=== PATIENT | female | born 1925 | race Caucasian/White ===

== ENCOUNTER 2017-03-11 14:09 | Emergency (ER) | payer MEDICARE, BC ==
[~2017-03-11] VITALS: Ht 157.5 cm; Wt 59.1 kg
[2017-03-11 14:10] VITALS: TEMP 98.1
[2017-03-11] MEDS ORDERED: ASPIRIN 81M81 MG/TA2 PO (14:48)
[2017-03-11] MEDS ORDERED: GLUCOPHAGE500 MG/TAB PO (14:49)
[2017-03-11] MEDS ORDERED: ZOCOR 10MG10 MG PO (14:49)
[2017-03-11] MEDS ORDERED: NORVASC 10MG10 MG PO (14:50)
[2017-03-11] MEDS ORDERED: FISH OIL 1000MG1 CAP PO (14:50)
[2017-03-11] MEDS ORDERED: SYNTHROID 0.0.025 MG PO (14:50)
[2017-03-11] MEDS ORDERED: EFFEXOR 3737.5 MG/TA PO (14:50)
[2017-03-11] MEDS ORDERED: VITAMIN C500 MG PO (14:51)
[2017-03-11] MEDS ORDERED: CALCIUM CARBON650 M2 PO (14:51)
[2017-03-11] MEDS ORDERED: VITAMIN D31000 I1 PO (14:51)
[2017-03-11] MEDS ORDERED: VITAMIN E 400 U4001 PO (14:51)
[2017-03-11] MEDS ORDERED: MULTI VITAMINS1 TAB PO (14:51)
[2017-03-11] MEDS ORDERED: CITRACAL + D CA1 TAB PO (14:52)
[2017-03-11] MEDS ORDERED: PROCARDIA XL 3030 MG PO (14:52)
[2017-03-11 15:13] LABS: BASO % 0.4 % (0.0-2.0); EOS # 0.2 (0.0-0.7); EOS % 2.7 % (0-4.0); GRAN # 3.7 (1.4-6.5); GRAN % 51.8 % (42.2-75.2); HEMATOCRIT 37.7 % (37.0-47.0); HEMOGLOBIN 12.9 g/dl (12.5-16.0); LYMPH # 2.5 (1.2-3.4); LYMPH % 34.7 % (20.0-51.0); MEAN CELL VOLUME 96 fl (80.0-100.0); MEAN CORPUSCULAR HEMOGLOBIN 33 pg (27.0-31.0); MEAN CORPUSCULAR HGB CONC 34 g/dl (33.0-37.0); MONO # 0.7 (0.1-0.6); MONO % 10.1 % (1.7-9.3); PLATELET COUNT 213 K/mm3 (130-400); RED BLOOD COUNT 3.93 M/mm3 (4.10-5.30); REDCELL DISTRIBUTION WIDTH-CV 12.6 % (11.5-14.5); WHITE BLOOD COUNT 7.1 K/mm3 (4.8-10.8)
[2017-03-11 15:26] LABS: ADJUSTED CALCIUM 9.9 mg/dL (8.4-10.2); ALANINE AMINOTRANSFERASE 25 U/L (9-52); ALBUMIN 4.2 gm/dL (3.5-5.0); ALKALINE PHOSPHATASE 51 U/L (50-136); ANION GAP 8 mmol/L (7-16); BILIRUBIN,TOTAL 0.5 mg/dL (0.0-1.0); BLOOD UREA NITROGEN 16 mg/dL (7-17); CALCIUM 10.1 mg/dL (8.4-10.2); CARBON DIOXIDE 28 mmol/L (22-30); CHLORIDE 97 mmol/L (98-107); CREATININE, serum 0.84 mg/dL (0.52-1.25); GLUCOSE 103 mg/dL (74-106); POTASSIUM 4.4 mmol/L (3.4-5.0); SODIUM 134 mmol/L (137-145); TOTAL PROTEIN 7.1 gm/dL (6.4-8.2)
[2017-03-11 15:27] LABS: C-REACTIVE PROTEIN < 0.5 mg/dL (0.0-0.9)
[2017-03-11 15:35] LABS: ERYTHROCYTE SEDIMENTATION RATE 12 mm/hr (0-30)
[2017-03-11 16:48] VITALS: BP 134/68; PULSE 56
[2017-03-11] MEDS ORDERED: CATAPRES 0.1MG0.1 MG PO (16:54)
== END 2017-03-11 17:03 | disposition home or self-care (01) ==
LOC: COL.ER 14:09
PROVIDERS: Emergency Medicine
DX: I10 Essential (primary) hypertension (principal); R51 Headache; E11.9 Type 2 diabetes mellitus without complications; Z79.84 Long term (current) use of oral hypoglycemic drugs

== ENCOUNTER 2017-03-24 15:20 | Inpatient (IN) | payer MEDICARE, BC ==
[~2017-03-24] VITALS: Ht 157.5 cm; Wt 61.8 kg
[~2017-03-24 15:20] MED LIST: ASPIRIN 81M81 MG/TA2 PO; CALCIUM CARBON650 M2 PO; CATAPRES 0.1MG0.1 MG PO; CITRACAL + D CA1 TAB PO; EFFEXOR 3737.5 MG/TA PO; FISH OIL 1000MG1 CAP PO; GLUCOPHAGE500 MG/TAB PO; MULTI VITAMINS1 TAB PO; NORVASC 10MG10 MG PO; PROCARDIA XL 3030 MG PO; SYNTHROID 0.0.025 MG PO; VITAMIN C500 MG PO; VITAMIN D31000 I1 PO; VITAMIN E 400 U4001 PO; ZOCOR 10MG10 MG PO
[2017-03-27] VITALS (12 sets, daily range): BP systolic 130–209; BP diastolic 45–98; PULSE 49–85; TEMP 97.8–98.4
[2017-03-27] MEDS ORDERED: ZOCOR 10MG10 MG PO (12:32)
[2017-03-27] MEDS ORDERED: CATAPRES 0.1MG0.1 MG PO (12:34)
[2017-03-27 12:36] LABS: HEMATOCRIT 38.2 % (37.0-47.0); HEMOGLOBIN 13.1 g/dl (12.5-16.0); MEAN CELL VOLUME 97 fl (80.0-100.0); MEAN CORPUSCULAR HEMOGLOBIN 33 pg (27.0-31.0); MEAN CORPUSCULAR HGB CONC 34 g/dl (33.0-37.0); MEAN PLATELET VOLUME 11.1 fl (7.4-10.4); PLATELET COUNT 214 K/mm3 (130-400); PROTHROMBIN TIME 11.2 SECONDS (9.7-12.8); RED BLOOD COUNT 3.96 M/mm3 (4.10-5.30); REDCELL DISTRIBUTION WIDTH-CV 12.9 % (11.5-14.5); WHITE BLOOD COUNT 7.6 K/mm3 (4.8-10.8)
[2017-03-27] MEDS ORDERED: TOPROL XL 25MG25 MG PO (12:36)
[2017-03-27 12:41] LABS: CALCIUM 9.2 mg/dL (8.4-10.2); CREATININE, serum 0.87 mg/dL (0.52-1.25); POTASSIUM 4.1 mmol/L (3.4-5.0)
[2017-03-27] MEDS ORDERED: MIRALAX PA17 GM/Dose PO (13:23)
[2017-03-28] VITALS (12 sets, daily range): BP systolic 108–207; BP diastolic 41–60; PULSE 59–63; TEMP 97.5–98.5
[2017-03-28 06:48] LABS: CALCIUM 8.6 mg/dL (8.4-10.2); CREATININE, serum 0.79 mg/dL (0.52-1.25); POTASSIUM 4.2 mmol/L (3.4-5.0)
[2017-03-29] VITALS (8 sets, daily range): BP systolic 152–194; BP diastolic 56–76; PULSE 59–99; TEMP 97.7–98.1
[2017-03-29] MEDS ORDERED: BETAPACE 80MG80 MG PO (12:13)
[2017-03-29] MEDS ORDERED: CEPHALEXIN500 M1 PO (12:18)
== END 2017-03-29 14:30 | disposition home or self-care (01) | DRG 244 ==
LOC: SURG 03-27 11:25 → MEDICAL 03-27 11:30 → COL.CAR 03-27 11:30 → EDSTATUS 03-27 11:30 → MEDICAL 03-28 16:33
PROVIDERS: Internal Medicine Cardiovascular Disease
PROC: 0JH606Z Insertion of Pacemaker, Dual Chamber into Chest Subcutaneous Tissue and Fascia, Open Approach (ICD-10-PCS; principal; 2017-03-27)
PROC: 02H63JZ Insertion of Pacemaker Lead into Right Atrium, Percutaneous Approach (ICD-10-PCS; 2017-03-27)
PROC: 02HK3JZ Insertion of Pacemaker Lead into Right Ventricle, Percutaneous Approach (ICD-10-PCS; 2017-03-27)
DX: I49.5 Sick sinus syndrome (principal); I10 Essential (primary) hypertension; E11.9 Type 2 diabetes mellitus without complications; Z91.81 History of falling; I08.0 Rheumatic disorders of both mitral and aortic valves
CPT/HCPCS: A9502; C1769; C1785; C1898; J0690; J2250; J2785; J3010; J7030